=== PATIENT | female | born 1995 | race Caucasian/White ===

== ENCOUNTER 2017-07-01 02:30 | Emergency (ER) | payer BC, OTHER ==
[~2017-07-01] VITALS: Ht 162.6 cm; Wt 52.7 kg
[~2017-07-01 02:30] MED LIST: LAMO200T PO; SULF1TAB24 PO
[2017-07-01] MEDS ORDERED: KETOROLAC 30 MG/1 ML ONE (02:55)
[2017-07-01] MEDS ORDERED: KETOROLAC 30 MG/1 ML IM ONE (03:00)
[2017-07-01 03:39] VITALS: BP 105/64
== END 2017-07-01 03:40 | disposition home or self-care (01) ==
LOC: ED 02:49
DX: R07.89 Other chest pain (principal); J06.9 Acute upper respiratory infection, unspecified; G40.909 Epilepsy, unspecified, not intractable, without status epilepticus; Z88.0 Allergy status to penicillin
CPT/HCPCS: 71020; 93005; 96372; 99284; J1885

== ENCOUNTER 2017-10-09 15:13 | Emergency (ER) | payer BC ==
[~2017-10-09] VITALS: Ht 162.6 cm; Wt 54.3 kg
[~2017-10-09 15:13] MED LIST changes: -LAMO200T PO; +LAMO200T2 PO
[2017-10-09] MEDS ORDERED: DIPHENHYDRAMINE 50 MG/ML, 1ML IVPush ONE (15:30)
[2017-10-09] MEDS ORDERED: PROCHLORPERAZINE 5 MG/ML, 2ML IVPush ONE (15:30)
[2017-10-09] MEDS ORDERED: SODIUM CHLORIDE FLUSH 10ML SYR IVF ONE (15:30)
[2017-10-09] MEDS ORDERED: SODIUM CHLORIDE 0.9% 1,000ML IVBOLUS ONE (15:30)
[2017-10-09] MEDS ORDERED: PROCHLORPERAZINE 5 MG/ML, 2ML ONE (15:32)
[2017-10-09] MEDS ORDERED: DIPHENHYDRAMINE 50 MG/ML, 1ML ONE (15:33)
[2017-10-09 16:37] VITALS: BP 105/65
== END 2017-10-09 16:53 | disposition home or self-care (01) ==
LOC: ED 16:15
DX: G44.209 Tension-type headache, unspecified, not intractable (principal); G40.909 Epilepsy, unspecified, not intractable, without status epilepticus; G43.909 Migraine, unspecified, not intractable, without status migrainosus
CPT/HCPCS: 96361; 96374; 96375; 99284; J0780; J1200; J7030

== ENCOUNTER 2018-02-17 04:40 | Emergency (ER) | payer BC ==
[~2018-02-17] VITALS: Ht 160 cm; Wt 54.4 kg
[2018-02-17 05:14] LABS: MICROSCOPIC NOT IND
[2018-02-17 05:17] LABS: CULTURE INDICATED? NO
[2018-02-17 05:44] LABS: BASOPHILS # (AUTO) 0.06 x10^3/uL (0-0.1); BASOPHILS % (AUTO) 1 % (0-1); EOSINOPHILS # (AUTO) 0.06 x10^3/uL (0-0.4); EOSINOPHILS % (AUTO) 1 % (1-7); LYMPHOCYTES # (AUTO) 4.02 x10^3/uL (1-3.4); LYMPHOCYTES % (AUTO) 51 % (22-44); MD NO; MEAN CORPUSCULAR HEMOGLOBIN 31.4 pg (27.0-34.8); MEAN CORPUSCULAR HGB CONC 35.1 g/dL (32.4-35.8); MEAN CORPUSCULAR VOLUME 89.6 fL (80-100); MEAN PLATELET VOLUME 8.7 fL (7.4-10.4); MONOCYTES % (AUTO) 6 % (2-9); NEUTROPHILS # (AUTO) 3.27 x10^3/uL (1.8-6.8); NEUTROPHILS % (AUTO) 41 % (42-75); PLATELET COUNT 213 x10^3/uL (130-400); RED BLOOD COUNT 4.86 x10^6/uL (3.82-5.3); RED CELL DISTRIBUTION WIDTH 13.5 % (9.6-15.2)
[2018-02-17 05:56] LABS: ALANINE AMINOTRANSFERASE 21 U/L (12-78); ALBUMIN 3.9 g/dL (3.4-5.0); ANION GAP 8 mmol/L (5-15); CALCIUM 8.6 mg/dL (8.5-10.1); CHLORIDE 107 mmol/L (98-107)
[2018-02-17 05:57] VITALS: BP 118/73
[2018-02-17 06:01] LABS: ALKALINE PHOSPHATASE 52 U/L (45-117); BILIRUBIN,TOTAL 1.6 mg/dL (0.2-1.0); CREATININE 0.78 mg/dL (0.55-1.02); TOTAL PROTEIN 7.1 g/dL (6.4-8.2)
== END 2018-02-17 07:04 | disposition home or self-care (01) ==
LOC: ED 05:32
DX: R11.0 Nausea (principal); R10.2 Pelvic and perineal pain; F12.10 Cannabis abuse, uncomplicated
CPT/HCPCS: 36415; 76830; 80053; 81003; 84703; 85025; 99285

== ENCOUNTER 2020-12-19 08:52 | Inpatient (IN) | payer BC ==
[~2020-12-19] VITALS: Ht 162.6 cm; Wt 79.1 kg
[~2020-12-19 08:52] MED LIST changes: -LAMO200T2 PO; +LAMO200T6 PO; +SULF-23 PO; -SULF1TAB24 PO
[2020-12-19 22:30] VITALS: BP 120/75
[2020-12-19] MEDS ORDERED: NEWBORN KIT ONE (22:55)
[2020-12-19] MEDS ORDERED: LIDOCAINE 1%, 20ML ONE (22:55)
[2020-12-19] MEDS ORDERED: MISOPROSTOL 200 MCG TABLET ONE (22:56)
[2020-12-19] MEDS ORDERED: OXYTOCIN 30U/ 0.9% NaCL 500ML 500 ML ONE (22:56)
[2020-12-19] MEDS ORDERED: MISOPROSTOL 25 MCG TABLET ONE (22:56)
[2020-12-19] MEDS: LACTATED RINGERS 1,000 ML IV SCH (23:00)
[2020-12-19] MEDS ORDERED: FENTANYL PF 100 MCG/2ML IV PRN (23:00)
[2020-12-19] MEDS ORDERED: FENTANYL PF 100 MCG/2ML IVPush PRN (23:00)
[2020-12-19] MEDS ORDERED: METOCLOPRAMIDE 5 MG/ML, 2ML IVPush PRN (23:00)
[2020-12-19] MEDS ORDERED: OXYTOCIN 30U/ 0.9% NaCL 500ML 500 ML IV ONE (23:00)
[2020-12-19] MEDS: D5%-LACTATED RINGERS 1,000 ML IV SCH (23:00)
[2020-12-19] MEDS ORDERED: ONDANSETRON 2MG/ML, 2ML IVPush PRN (23:00)
[2020-12-19] MEDS ORDERED: SODIUM CITRATE/CITRIC ACID 30 ML UDC PO PRN (23:00)
[2020-12-19] MEDS ORDERED: CALCIUM CARBONATE 500 MG TAB.CHEW PO PRN (23:00)
[2020-12-19] MEDS ORDERED: TERBUTALINE 1 MG/ML, 1ML SQ PRN (23:00)
[2020-12-19] MEDS ORDERED: TERBUTALINE 1 MG/ML, 1ML IVPush PRN (23:00)
[2020-12-19] MEDS: MISOPROSTOL 25 MCG TABLET VG PRN (23:22)
[2020-12-19 23:34] LABS: BASOPHILS % (AUTO) 0 % (0-1); EOSINOPHILS % (AUTO) 0 % (1-7); LYMPHOCYTES % (AUTO) 24 % (22-44); MEAN CORPUSCULAR HGB CONC 35.2 g/dL (32.4-35.8); MEAN PLATELET VOLUME 8.4 fL (7.4-10.4); MONOCYTES % (AUTO) 6 % (2-9); NEUTROPHILS % (AUTO) 69 % (42-75); PLATELET COUNT 218 x10^3/uL (130-400); RED CELL DISTRIBUTION WIDTH 13.5 % (9.6-15.2)
[2020-12-19 23:39] LABS: MD NO
[2020-12-19] MEDS ORDERED: PLEASE ENTER HEIGHT AND WEIGHT MC SCH (23:45)
[2020-12-20] MEDS: D5%-LACTATED RINGERS 1,000 ML IV SCH ×2 (07:00→15:00)
[2020-12-20] MEDS: MISOPROSTOL 25 MCG TABLET VG PRN ×2 (07:03→08:03)
[2020-12-20 08:12] LABS: AMPHETAMINE SCREEN, URINE Negative (Negative); BARBITURATE SCREEN, URINE Negative (Negative); BENZODIAZEPINE SCREEN, URINE Negative (Negative); CANNABINOID SCREEN, URINE Negative (Negative); COCAINE SCREEN, URINE Negative (Negative); METHADONE SCREEN, URINE Negative (Negative); OPIATE SCREEN, URINE Negative (Negative)
[2020-12-20] MEDS ORDERED: OXYTOCIN 30U/ 0.9% NaCL 500ML 500 ML IV PRN (11:30)
[2020-12-20] MEDS ORDERED: FENTANYL/BUPIV./NS/PF 250 ML EPIDCONT ONE (12:35)
[2020-12-20] MEDS ORDERED: BUPIVACAINE 0.25% ONE (12:35)
[2020-12-20] MEDS: LACTATED RINGERS 1,000 ML IV SCH ×4 (12:49→22:12)
[2020-12-20] MEDS ORDERED: DIPHENHYDRAMINE 50 MG/ML, 1ML IVPush PRN (13:00)
[2020-12-20] MEDS ORDERED: ONDANSETRON 2MG/ML, 2ML IVPush PRN (13:00)
[2020-12-20] MEDS ORDERED: NALOXONE 0.4 MG/ML, 1ML IVPush PRN (13:00)
[2020-12-20] MEDS ORDERED: FENTANYL/BUPIV./NS/PF 250 ML EPIDCONT SCH (13:00)
[2020-12-20] MEDS ORDERED: EPHEDRINE 50 MG/ML, 1ML IVPush PRN (13:00)
[2020-12-20] MEDS ORDERED: LACTATED RINGERS 1,000 ML IVBOLUS PRN (13:00)
[2020-12-20 19:32] VITALS: BP 122/73
[2020-12-21] MEDS ORDERED: MISOPROSTOL 200 MCG TABLET PR PRN (02:30)
[2020-12-21] MEDS: OXYTOCIN 30U/ 0.9% NaCL 500ML 500 ML IV SCH ×3 (02:30→22:30)
[2020-12-21] MEDS ORDERED: ONDANSETRON 2MG/ML, 2ML IV PRN (02:30)
[2020-12-21] MEDS ORDERED: ACETAMINOPHEN 325 MG TABLET PO PRN (02:30)
[2020-12-21] MEDS ORDERED: SIMETHICONE 80 MG CHEW TAB PO PRN (02:30)
[2020-12-21] MEDS: IBUPROFEN 600 MG TABLET PO PRN ×3 (03:54→17:29)
[2020-12-21 04:20] VITALS: BP 119/82
[2020-12-21] MEDS: OXYcodone IR 5MG TABLET PO PRN ×6 (04:38→21:56)
[2020-12-21 07:30] VITALS: BP 113/75
[2020-12-21] MEDS: PRENATAL VIT/IRON/FA 1 EACH TABLET PO SCH (09:00)
[2020-12-21 10:16] LABS: BASOPHILS % (AUTO) 0 % (0-1); EOSINOPHILS % (AUTO) 0 % (1-7); LYMPHOCYTES % (AUTO) 11 % (22-44); MEAN CORPUSCULAR HEMOGLOBIN 33.9 pg (27.0-34.8); MEAN CORPUSCULAR HGB CONC 34.7 g/dL (32.4-35.8); MEAN PLATELET VOLUME 8.4 fL (7.4-10.4); MONOCYTES % (AUTO) 6 % (2-9); NEUTROPHILS % (AUTO) 83 % (42-75); PLATELET COUNT 171 x10^3/uL (130-400); RED BLOOD COUNT 3.91 x10^6/uL (3.82-5.3); RED CELL DISTRIBUTION WIDTH 13.2 % (9.6-15.2)
[2020-12-21 10:38] LABS: MD SCAN
[2020-12-21 16:00] VITALS: BP 114/76
[2020-12-21 19:30] VITALS: BP 109/67
[2020-12-21] MEDS: DOCUSATE 100 MG CAPSULE PO PRN (21:56)
[2020-12-22 00:30] VITALS: BP 109/71
[2020-12-22] MEDS: IBUPROFEN 600 MG TABLET PO PRN ×2 (02:48→08:35)
[2020-12-22] MEDS: OXYcodone IR 5MG TABLET PO PRN ×2 (02:48→10:56)
[2020-12-22] MEDS ORDERED: IBUP-1222 PO (07:50)
[2020-12-22] MEDS: DOCUSATE 100 MG CAPSULE PO PRN (07:50)
[2020-12-22] MEDS: PRENATAL VIT/IRON/FA 1 EACH TABLET PO SCH (07:50)
== END 2020-12-22 12:05 | disposition home or self-care (01) | DRG 807 ==
LOC: LDIP 22:04 → 2NW 12-21 04:17
PROVIDERS: ADMIT Obstetrics & Gynecology; ATTEND Obstetrics & Gynecology
PROC: 10E0XZZ Delivery of Products of Conception, External Approach (ICD-10-PCS; principal; 2020-12-21)
PROC: 10907ZC Drainage of Amniotic Fluid, Therapeutic from Products of Conception, Via Natural or Artificial Opening (ICD-10-PCS; 2020-12-21)
PROC: 3E0R3BZ Introduction of Anesthetic Agent into Spinal Canal, Percutaneous Approach (ICD-10-PCS; 2020-12-21)
PROC: 00HU33Z Insertion of Infusion Device into Spinal Canal, Percutaneous Approach (ICD-10-PCS; 2020-12-21)
PROC: 0HQ9XZZ Repair Perineum Skin, External Approach (ICD-10-PCS; 2020-12-21)
DX: O99.354 Diseases of the nervous system complicating childbirth (principal); Z37.0 Single live birth; G40.909 Epilepsy, unspecified, not intractable, without status epilepticus; Z3A.39 39 weeks gestation of pregnancy; Z20.822 Contact with and (suspected) exposure to COVID-19; Z88.0 Allergy status to penicillin; Z88.8 Allergy status to other drugs, medicaments and biological substances; Z91.048 Other nonmedicinal substance allergy status; O69.81X0 Labor and delivery complicated by cord around neck, without compression, not applicable or unspecified; O70.0 First degree perineal laceration during delivery
CPT/HCPCS: 36415; 80307; 85025; 86592; 86900; 87635; G0378; J2405; J2590; J3010; J7120